=== PATIENT | male | born 1985 | race Caucasian/White ===

== ENCOUNTER 2016-10-28 14:39 | Outpatient (CLI) | payer OTHER | END 2016-10-28 14:40 | disposition critical access hospital (66) | LOC: EMS 14:39 | PROVIDERS: ATTEND Surgery | DX: S97.81XA Crushing injury of right foot, initial encounter (principal); W23.0XXA Caught, crushed, jammed, or pinched between moving objects, initial encounter; Y92.009 Unspecified place in unspecified non-institutional (private) residence as the place of occurrence of the external cause | CPT/HCPCS: A0425; A0429 ==

== ENCOUNTER 2016-10-28 15:12 | Emergency (ER) | payer OTHER ==
[2016-10-28 15:19] VITALS: BP 129/90
--- NOTE | 2016-10-28 15:24 | ED Physician Documentation ---
PD HPI LOWER EXT INJURY - Stated complaint Stated Complaint: FOOT INJURY - Chief complaint Chief Complaint: Ext Problem - History obtained from History obtained from: Patient - History of Present Illness PD HPI LOW EXT INJURY LOCATION: Right, Ankle (working on car and leatha slipped, with the weight of the car pinning his ankle, medial side. It ws there about 5 minutes before extricating. Pain in ankle and feeling of numbness.) Review of Systems Constitutional: denies: Fever, Chills Cardiac: denies: Chest pain / pressure Respiratory: denies: Dyspnea, Cough, Wheezing PD PAST MEDICAL HISTORY - Past Medical History Past Medical History: No Neuro: None Endocrine/Autoimmune: None - Past Surgical History Past Surgical History: Yes - Present Medications Home Medications: Ambulatory Orders Medication Instructions Recorded Confirmed HYDROcod/ACETAM 5/325 [[place] 5/325] 1 tab PO Q6H PRN #12 tablet 10/28/16 Naproxen [Naprosyn] 500 mg PO BID PRN #15 tablet 10/28/16 - Allergies Allergies/Adverse Reactions: Allergies Allergy/AdvReac Type Severity Reaction Status Date / Time No Known Drug Allergies Allergy Verified 11/01/13 15:48 - Social History Does the pt smoke?: No Smoking Status: Never smoker Does the pt drink ETOH?: Yes Does the pt have substance abuse?: No PD ED PE NORMAL - Vitals Vital signs reviewed: Yes - General General: Alert and oriented X 3, No acute distress, Well developed/nourished - HEENT HEENT: Atraumatic - Neck Neck: No bony TTP - Derm Derm: Normal color, Warm and dry - Extremities Extremities: Other (right medial ankle with redness, swelling, contusion and tenderness. ) Results - Vitals Vitals: Oxygen O2 Source Room air - Rads (name of study) ankle Radiology: Prelim report reviewed, EMP read contemporaneously (small avulsion of inner side. ) PD MEDICAL DECISION MAKING - ED course Complexity details: reviewed results (off the medial lalleolus, patient fk), considered differential, d/w patient Departure - Departure Disposition: 01 Home, Self Care Clinical Impression: Crush injury, ankle Qualifiers: Encounter type: initial encounter Laterality: right Qualified Code(s): S97.01XA - Crushing injury of right ankle, initial encounter Avulsion fracture of ankle Qualifiers: Encounter type: initial encounter Fracture type: closed Laterality: right Qualified Code(s): S82.891A - Other fracture of right lower leg, initial encounter for closed fracture Condition: Stable Record reviewed to determine appropriate education?: Yes Instructions: ED Contusion Lower Ext Follow-Up: Antwon Osorio MD [Provider Admit Priv/Credential] - Prescriptions: Naproxen [Naprosyn] 500 mg PO BID PRN #15 tablet PRN Reason: Pain HYDROcod/ACETAM 5/325 [[place] 5/325] 1 tab PO Q6H PRN #12 tablet PRN Reason: Pain Comments: The radiologist is only seen that one small avulsion off the inside of the ankle. It is okay to be hurting for several days to a week or so. Use the ankle brace and crutches as needed for comfort. Progress weightbearing as able. Recheck if not better in the next 7-10 days, call orthopedics if needed. Naproxen or ibuprofen twice a day for a week. Add Tylenol or pain medicine if needed. Elevate ice and rest the ankle often this evening to reduce further swelling. Discharge Date/Time: 10/28/16 17:10
[2016-10-28] MEDS ORDERED: HYDROcod/ACETAM 5/325 MG TABLET PO STA (15:38)
[2016-10-28] MEDS ORDERED: IBUPROFEN 600 MG TABLET PO STA (15:38)
[2016-10-28] MEDS ORDERED: HYDROcod/ACETAM 5/325 MG TABLET ONE (15:46)
[2016-10-28] MEDS ORDERED: IBUPROFEN 600 MG TABLET PO ONE (15:46)
--- NOTE | 2016-10-28 16:16 | XRAY Preliminary Report ---
Exam: XR Ankle 3 View RT IMPRESSION: 4 mm focal calcification seen medial to the medial malleolus, appears more chronic, howev er acute fracture here not completely excluded. Chronic appearing 3 mm calcification seen at the medi al foot. Otherwise, no evidence for acute fracture. Diffuse ankle soft tissue swelling. [facility] SITE ID: [id number]
--- NOTE | 2016-10-28 16:18 | XRAY Report ---
EXAM: RIGHT ANKLE RADIOGRAPHY EXAM DATE: 10/28/2016 03:31 PM. CLINICAL HISTORY: Car axle fell on foot, ankle. Pain at medial malleolus. COMPARISON: None. TECHNIQUE: 3 views. FINDINGS: Bones: 4 mm focal calcification seen medial to the medial malleolus, appears more chronic, however ac deidre fracture here not completely excluded. Chronic appearing 3 mm calcification seen at the medial fo ot. Otherwise, no evidence for acute fracture. Diffuse ankle soft tissue swelling. Tiny medial malleolar bone spur. Joints: Within normal limits. Soft Tissues: Diffuse ankle soft tissue swelling. IMPRESSION: 4 mm focal calcification seen medial to the medial malleolus, appears more chronic, howev er acute fracture here not completely excluded. Chronic appearing 3 mm calcification seen at the medi al foot. Otherwise, no evidence for acute fracture. Diffuse ankle soft tissue swelling. [facility] Referring Provider Line: [phone] SITE ID: [id number]
== END 2016-10-28 17:10 | disposition home or self-care (01) ==
LOC: EDUNIT# → ED 15:12
DX: S82.891A Other fracture of right lower leg, initial encounter for closed fracture (principal); S97.01XA Crushing injury of right ankle, initial encounter; W23.1XXA Caught, crushed, jammed, or pinched between stationary objects, initial encounter
CPT/HCPCS: 73610; 99283; A9270

== ENCOUNTER 2019-04-29 20:32 | Emergency (ER) | payer OTHER ==
[2019-04-29] MEDS ORDERED: HYDROmorphone 1 MG/ML SYRINGE IM STA (20:52)
[2019-04-29] MEDS ORDERED: oxyCODONE/ACET 5/325 Prepack 4 PO STA (20:52)
[2019-04-29] MEDS ORDERED: KETOROLAC 60 MG/2 ML VIAL IM STA (20:52)
[2019-04-29] MEDS ORDERED: predniSONE 20 MG TABLET PO STA (20:53)
[2019-04-29 20:54] VITALS: BP 144/103
--- NOTE | 2019-04-29 20:54 | ED Physician Documentation ---
PD HPI BACK PAIN - Stated complaint Stated Complaint: LOWER BACK PX, LT KNEE PX, TOES TINGLING - Chief complaint Chief Complaint: Back Pain - History obtained from History obtained from: Patient - History of Present Illness Timing - onset: Other (33-year-old gentleman with recurrent low back pain and sciatica. For the last 2 to 3 days he has had pain in the left low back radiating towards the left knee with some numbness on the lateral side of the left foot. No saddle anesthesia, fevers, incontinence. No abdominal pain. No fevers. He has had this twice in the past and always resolved without specific intervention but did need some help with medications.) Review of Systems Constitutional: denies: Fever, Chills Nose: denies: Rhinorrhea / runny nose, Congestion Cardiac: denies: Chest pain / pressure, Palpitations Respiratory: denies: Dyspnea, Cough PD PAST MEDICAL HISTORY - Past Medical History Past Medical History: No Cardiovascular: None Neuro: None Endocrine/Autoimmune: None GI: None : None HEENT: None Psych: None Musculoskeletal: None - Past Surgical History Past Surgical History: Yes - Present Medications Home Medications: Ambulatory Orders Medication Instructions Recorded Confirmed HYDROcod/ACETAM 5/325 [[place] 5/325] 1 tab PO Q6H PRN #12 tablet 10/28/16 Naproxen [Naprosyn] 500 mg PO BID PRN #15 tablet 10/28/16 Cyclobenzaprine [Flexeril] 10 mg PO TID PRN #20 tablet 04/29/19 Oxycodone HCl/Acetaminophen 1 - 2 each PO Q6H PRN #14 tablet 04/29/19 [Percocet 5-325 mg Tablet] predniSONE [Deltasone] 60 mg PO DAILY 5 Days #15 tablet 04/29/19 - Allergies Allergies/Adverse Reactions: Allergies Allergy/AdvReac Type Severity Reaction Status Date / Time No Known Drug Allergies Allergy Verified 11/01/13 15:48 - Social History Does the pt smoke?: No Smoking Status: Never smoker Does the pt drink ETOH?: Yes Does the pt have substance abuse?: No - POLST Patient has POLST: No PD ED PE NORMAL - Vitals Vital signs reviewed: Yes - General General: Alert and oriented X 3, No acute distress - Respiratory Respiratory: No respiratory distress, Clear bilaterally - Abdomen Abdomen: Normal bowel sounds, Soft, Non tender - Back Back: No spinal TTP, Other (The patient has equal and normal Achilles and patellar reflexes bilaterally. Normal sensation in all areas of the legs. Patient denies saddle anesthesia. Normal strength in flexion-extension at the ankles, knees, and flexion of the hips.) - Neuro Neuro: Alert and oriented X 3, Normal speech Results - Vitals Vitals: Vital Signs - 24 hr 04/29/19 20:38 Temperature 36.6 C Heart Rate 96 Respiratory 18 Rate Blood Pressure 144/103 H O2 Saturation 98 Oxygen O2 Source Room air PD MEDICAL DECISION MAKING - ED course ED course: This patient has seemingly uncomplicated musculoskeletal back pain. The patient has no "red flags." Specifically denies IV drug use, fevers, incontinence, saddle anesthesia. Spinal epidural abscess was considered, given that the patient has no fever, is not diabetic, has no spinal tenderness, does not use IV drugs, and has no bilateral neurologic symptoms, the diagnosis of spinal epidural abscess is considered exceedingly unlikely. Departure - Departure Disposition: 01 Home, Self Care Clinical Impression: Sciatica Qualifiers: Laterality: left Qualified Code(s): M54.32 - Sciatica, left side Condition: Good Record reviewed to determine appropriate education?: Yes Instructions: ED Sciatica Prescriptions: Cyclobenzaprine [Flexeril] 10 mg PO TID PRN #20 tablet PRN Reason: Spasms Oxycodone HCl/Acetaminophen [Percocet 5-325 mg Tablet] 1 - 2 each PO Q6H PRN #14 tablet PRN Reason: pain predniSONE [Deltasone] 60 mg PO DAILY 5 Days #15 tablet Comments: Call your doctor to arrange a follow-up appointment, make the next available appointment. In the interim, return anytime if worse or if new symptoms develop. Do not drink or drive while taking narcotic pain medication. Note that many narcotic pain relievers also contain Tylenol/acetaminophen. Please ensure that your total dose of acetaminophen from all sources does not exceed 3 g (3000 mg) per day. You may get constipated while on this medication. Take a stool softener such as Colace twice a day while you are on it. Also add an [id number] laxative such as senna or MiraLAX on any day that you do not have a bowel movement. If you received a narcotic pain medication or sedative while in the emergency department, do not drive for the next 24 hours. Your blood pressure was elevated today on check into the emergency department. This does not mean that you have hypertension, it is a common phenomenon to come to the emergency department and have elevated blood pressure. I recommend that you see your primary care physician within the week to have it rechecked when you are feeling better.
== END 2019-04-29 21:15 | disposition home or self-care (01) ==
LOC: ED 20:32
DX: M54.32 Sciatica, left side (principal)
CPT/HCPCS: 99283; 99284; J1170; J7512

== ENCOUNTER 2020-11-04 14:14 | Emergency (ER) | payer OTHER ==
[2020-11-04 14:19] VITALS: BP 160/100
[2020-11-04] MEDS ORDERED: KETOROLAC 60 MG/2 ML VIAL IM STA (15:30)
--- NOTE | 2020-11-04 15:38 | ED Physician Documentation ---
History of Present Illness - Stated complaint Stated Complaint: BACK PX - Chief complaint Chief Complaint: Back Pain - History obtained from History obtained from: Patient - Additonal information Additional information: Patient comes emergency department chief complaint of low back pain on the right shooting down his right leg. Patient states he has a history of low back issues and sciatica for about the last 10 years that he occasionally has flareups. 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 Patient states he has some tingling in his toes which is typical of his sciatic flares. He states this usually goes away once the flare dies down. He states the pain started somewhere in the middle of the night last night and he is not exactly sure what caused it. No distinct injury. No particularly heavy work yesterday compared with what he normally does. No loss of bowel or bladder control. No fevers. No other complaints at this time. Review of Systems Ten Systems: 10 systems reviewed and negative Constitutional: reports: Reviewed and negative Eyes: reports: Reviewed and negative Ears: reports: Reviewed and negative Nose: reports: Reviewed and negative Throat: reports: Reviewed and negative Cardiac: reports: Reviewed and negative Respiratory: reports: Reviewed and negative GI: reports: Reviewed and negative : reports: Reviewed and negative Skin: reports: Reviewed and negative Musculoskeletal: reports: Back pain Neurologic: reports: Reviewed and negative Psychiatric: reports: Reviewed and negative Endocrine: reports: Reviewed and negative Immunocompromised: reports: Reviewed and negative PD PAST MEDICAL HISTORY - Past Medical History Cardiovascular: None Neuro: None Endocrine/Autoimmune: None GI: None : None HEENT: None Psych: None Musculoskeletal: None - Past Surgical History Past Surgical History: Yes - Present Medications Home Medications: Ambulatory Orders Medication Instructions Recorded Confirmed HYDROcod/ACETAM 5/325 [[place] 5/325] 1 tab PO Q6H PRN #12 tablet 10/28/16 Naproxen [Naprosyn] 500 mg PO BID PRN #15 tablet 10/28/16 Cyclobenzaprine [Flexeril] 10 mg PO TID PRN #20 tablet 04/29/19 Oxycodone HCl/Acetaminophen 1 - 2 each PO Q6H PRN #14 tablet 04/29/19 [Percocet 5-325 mg Tablet] predniSONE [Deltasone] 60 mg PO DAILY 5 Days #15 tablet 04/29/19 Cyclobenzaprine [Flexeril] 10 mg PO TID PRN #20 tablet 11/04/20 HYDROcod/ACETAM 5/325 [[place] 5/325] 1 - 2 tablet PO Q6H PRN #14 tablet 11/04/20 - Allergies Allergies/Adverse Reactions: Allergies Allergy/AdvReac Type Severity Reaction Status Date / Time No Known Drug Allergies Allergy Verified 11/04/20 14:17 - Social History Does the pt smoke?: No Smoking Status: Never smoker Does the pt drink ETOH?: Yes Does the pt have substance abuse?: No - POLST Patient has POLST: No PD ED PE NORMAL - Vitals Vital signs reviewed: Yes - General General: Alert and oriented X 3, No acute distress, Well developed/nourished - HEENT HEENT: Atraumatic, PERRL, EOMI, Moist mucous membranes - Neck Neck: Supple, no meningeal sign, No bony TTP - Respiratory Respiratory: No respiratory distress - Back Back: No CVA TTP, No spinal TTP, Other (Tenderness palpation over right paraspinal musculature in the lumbosacral area. Mild tenderness over SI joint.) - Derm Derm: Normal color, Warm and dry, No rash - Extremities Extremities: No deformity, No edema, No calf tenderness / cord - Neuro Neuro: Alert and oriented X 3, tack picker 2-12 intact, Normal speech - Psych Psych: Normal mood, Normal affect Results - Vitals Vitals: Vital Signs - 24 hr 11/04/20 14:17 Temperature 36.5 C Heart Rate 73 Respiratory 16 Rate Blood Pressure 160/100 H O2 Saturation 96 Oxygen O2 Source Room air PD MEDICAL DECISION MAKING - ED course Complexity details: considered differential, d/w patient ED course: The patient had driven himself to the emergency department, and was treated symptomatically with IM Toradol. He was given prescriptions for Flexeril and Vicodin. He is instructed also to take ibuprofen. We have discussed icing and heat, as well as stretching massage. We have discussed the usual indications for return. Departure - Departure Disposition: 01 Home, Self Care Clinical Impression: Back pain Qualifiers: Back pain location: low back pain Chronicity: acute Back pain laterality: right Sciatica presence: with sciatica Sciatica laterality: sciatica of right side Qualified Code(s): M54.41 - Lumbago with sciatica, right side Condition: Stable Instructions: ED Neck Back Pain General, ED Sciatica Prescriptions: Cyclobenzaprine [Flexeril] 10 mg PO TID PRN #20 tablet PRN Reason: Spasms HYDROcod/ACETAM 5/325 [[place] 5/325] 1 - 2 tablet PO Q6H PRN #14 tablet PRN Reason: Pain Comments: Scription's have been electronically transmitted to [facility] in [place]. Please take the medications prescribed as needed along with ibuprofen. You may also use ice, heat, massage, and stretching to help with the discomfort you are having.
== END 2020-11-04 15:51 | disposition home or self-care (01) ==
LOC: ED 14:14
DX: M54.41 Lumbago with sciatica, right side (principal)
CPT/HCPCS: 96372; 99283